=== PATIENT | male | born 1990 | race African-American/Black ===

== ENCOUNTER 2023-04-04 21:20 | Emergency (ER) | payer BC ==
[2023-04-04] MEDS ORDERED: PROMETHAZINE INJ 25 MG/ML AMP ONE (22:01)
[2023-04-04] MEDS ORDERED: CYCLOBENZAPRINE 10 MG TAB ONE (22:01)
[2023-04-04] MEDS ORDERED: MORPHINE 4 MG/ML SYR ONE (22:02)
[2023-04-04] MEDS ORDERED: KETOROLAC 30 MG/ML INJ ONE (22:02)
--- NOTE | 2023-04-05 00:36 | EDPHYS ---
Physician Documentation [facility] Name: Ren Polo Age: 33 yrs Sex: Male : 1990 Arrival Date: 04/04/2023 Time: 21:20 Bed 6 Private MD: ED Physician Brad Staton HPI: 04/04 21:29 This 33 yrs old Black Male presents to ER via Unassigned with complaints of Knee Injury.sp4 21:44 Patient is 33-year-old morbidly obese male who presents with complaint of a left knee sp4 injury just prior to arrival estimated 40 minutes ago. Patient states he was running and fell onto the left knee causing hyperflexion of the knee. Patient states he has very difficult time putting weight on the left lower extremity because of knee pain, no prior injury to that leg reported. Historical: - Allergies: 22:07 No Known Allergies; kd3 - Immunization history:: Adult Immunizations up to date. - Social history:: Smoking status: Reported history of juuling and/or vaping. - Family history:: not pertinent. ROS: 21:44 Constitutional: Negative for fever, chills, and weight loss, MS/Extremity: Positive for sp4 left knee injury, left knee pain, left knee swelling, not able to bear weight on the leg 21:44 All other systems are negative. Exam: 21:44 Constitutional: This is a well developed, well nourished patient who is awake, alert, sp4 morbidly obese male Head/Face: Normocephalic, atraumatic. Eyes: Pupils equal round and reactive to light, extra-ocular motions intact. Lids and lashes normal. Conjunctiva and sclera are not injected. Cornea within normal limits. Periorbital areas with no swelling, redness, or edema. ENT: Nares patent. No nasal discharge, no septal abnormalities noted. Tympanic membranes are normal and external auditory canals are clear. Oropharynx with no redness, swelling, or masses, exudates, or evidence of obstruction, uvula midline. Mucous membranes moist. Neck: Trachea midline, no thyromegaly or masses palpated, and no cervical lymphadenopathy. Supple, full range of motion without nuchal rigidity, or vertebral point tenderness. Chest/axilla: Normal chest wall appearance and motion. Nontender with no deformity. No lesions are appreciated. Cardiovascular: Regular rate and rhythm with a normal S1 and S2. No gallops, murmurs, or rubs. Normal PMI, no JVD. No pulse deficits. Respiratory: Lungs have equal breath sounds bilaterally, clear to auscultation and percussion. No rales, rhonchi or wheezes noted. No increased work of breathing, no retractions or nasal flaring. Abdomen/GI: Soft, non-tender, with normal bowel sounds. No distension or tympany. No guarding or rebound. No evidence of tenderness throughout. Back: No spinal tenderness. No costovertebral tenderness. Skin: Warm, dry with normal turgor. Normal color with no rashes, no lesions, and no evidence of cellulitis. MS/ Extremity: Pulses equal, no cyanosis. Neurovascular intact. Left lower extremity pulses preserved, left knee tenderness, swelling, decreased range of motion. Morbidly obese habitus limits examination Neuro: Awake and alert, GCS 15, oriented to person, place, time, and situation. Cranial nerves II-XII grossly intact. Motor strength 5/5 in all extremities. Sensory grossly intact. Psych: Awake, alert, with orientation to person, place and time. Behavior, mood, and affect are within normal limits Vital Signs: 22:04 BP 160 / 82; Pulse 89; Resp 16; Temp 97.9(TE); Pulse Ox 96% on R/A; Weight 199.58 kg; kd3 Height 6 ft. 3 in. ; 23:11 BP 178 / 98; Pulse 76; Resp 17; Pulse Ox 91% on R/A; ll3 04/05 00:23 BP 186 / 103; Pulse 85; Resp 18; Pulse Ox 91% on R/A; ll3 00:40 BP 162 / 91; Pulse 92; Resp 18; Pulse Ox 92% on R/A; ll3 01:19 BP 160 / 90; Pulse 90; Resp 20 S; Pulse Ox 92% on R/A; ha1 04/04 22:04 Body Mass Index 55.00 (199.58 kg, 190.5 cm) kd3 MDM: 04/04 21:30 Patient medically screened. sp4 04/05 00:32 Differential Diagnosis Left knee sprain, left knee fracture, left knee derangement, sp4 left knee dislocation. Data reviewed: vital signs, nurses notes, radiologic studies, plain films. Consideration of Admission/Observation Escalation of care including admission/observation considered. ED course: Left knee x-ray radiograph is unremarkable. . 00:35 ED course: . sp4 04/04 22:43 Order name: Knee Left 3 View XRAY sp4 04/05 00:33 Order name: Crutch Training; Complete Time: : sp4 04/05 00:33 Order name: Crutches; Complete Time: sp4 04/05 00:34 Order name: Splint: L knee immobilizer; Complete Time: sp4 Administered Medications: 04/04 22:08 Drug: morphine IM 8 mg Route: IM; Site: right deltoid; kd3 22:08 Drug: Ketorolac IM 60 mg Route: IM; Site: left deltoid; kd3 22:08 Drug: Cyclobenzaprine PO 10 mg Route: PO; kd3 22:11 Not Given (Physician Discretion): Promethazine PO 25 mg PO once kd3 22:11 Drug: Promethazine IM 25 mg Route: IM; Site: right deltoid; kd3 04/05 00:50 Drug: Ondansetron PO 4 mg Route: PO; ha1 01:18 Follow up: Response: No adverse reaction ha1 00:55 Drug: [place] PO 10 mg-325 mg 1 tabs Route: PO; ha1 01:18 Follow up: Response: No adverse reaction; Pain is decreased; RASS: Alert and Calm (0) ha1 Disposition Summary: 04/05/23 00:36 Discharge Ordered Location: Home sp4 Problem: new sp4 Symptoms: are unchanged sp4 Condition: Stable sp4 Diagnosis - Sprain of other specified parts of knee sp4 - Sprain of other specified parts of left knee sp4 - Obesity, unspecified sp4 Followup: sp4 - With: Harsh Stephens MD - When: 10 - 14 days - Reason: Recheck today's complaints Discharge Instructions: - Discharge Summary Sheet sp4 - Knee Sprain, Adult, [id number] sp4 Prescriptions: - Ibuprofen 800 mg Oral Tablet - take 1 tablet by ORAL route every 8 hours As needed take with food; 30 tablet; sp4 Refills: 0, Product Selection Permitted - methocarbamol 750 mg Oral Tablet - take 1 tablet by ORAL route 4 times per day for 3 days PRN muscle soreness; 60 sp4 tablet; Refills: 0, Product Selection Permitted Signatures: Dispatcher [employer] Sera Pina RN RN kd3 Ruba Denise RN RN ha1 Brad Staton MD MD sp4
--- NOTE | 2023-04-05 00:36 | ER ---
Nurse's Notes [facility] Name: Ren Polo Age: 33 yrs Sex: Male : 1990 Arrival Date: 04/04/2023 Time: 21:20 Bed 6 Private MD: Diagnosis: Sprain of other specified parts of knee;Sprain of other specified parts of left knee;Obesity, unspecified Presentation: 04/04 22:04 Chief complaint: Patient states: My left knee is swollen from my calf to my thigh. I kd3 was running and i slipped and rolled over on it and it felt like my knee cap moved. Coronavirus screen: Vaccine status: Patient reports being unvaccinated. Ebola Screen: No symptoms or risks identified at this time. Initial Sepsis Screen: Does the patient meet any 2 criteria? No. Patient's initial sepsis screen is negative. Does the patient have a suspected source of infection? No. Patient's initial sepsis screen is negative. Risk Assessment: Do you want to hurt yourself or someone else? Patient reports no desire to harm self or others. Onset of symptoms was April 04, 2023. 22:04 Method Of Arrival: Wheelchair kd3 22:04 Acuity: OFELIA 3 kd3 Triage Assessment: 22:07 General: Appears uncomfortable, Behavior is calm, cooperative. Pain: Complains of pain kd3 in left knee. Musculoskeletal: Circulation, motion, and sensation intact. 22:08 Injury Description: fall. ha1 Historical: - Allergies: 22:07 No Known Allergies; kd3 - Immunization history:: Adult Immunizations up to date. - Social history:: Smoking status: Reported history of juuling and/or vaping. - Family history:: not pertinent. Screenin:08 [facility] ED Fall Risk Assessment (Adult) History of falling in the last 3 months, ha1 including since admission Yes- single mechanical fall (1 pt) Confusion or Disorientation No (0 pts) Score/Fall Risk Level 0 - 2 = Low Risk Oriented to surroundings, Maintained a safe environment, Educated pt \T\ family on fall prevention, incl call for assistance when getting out of bed, Hourly rounding (assess needs \T\ fall precautionary measures) done. 04/05 01:20 Abuse screen: Denies threats or abuse. Denies injuries from another. Nutritional ha1 screening: No deficits noted. Tuberculosis screening: No symptoms or risk factors identified. Assessment: 04/04 22:45 General: Appears comfortable, Behavior is calm, cooperative. Pain: Complains of pain in ha1 left leg and left knee Pain does not radiate. Pain currently is 10 out of 10 on a pain scale. Neuro: Level of Consciousness is awake, alert, obeys commands, Oriented to person, place, time, situation. Cardiovascular: Patient's skin is warm and dry. Respiratory: Airway is patent Respiratory effort is even, unlabored, Respiratory pattern is regular, symmetrical. GI: No signs and/or symptoms were reported involving the gastrointestinal system. Abdomen is round non-distended, obese. : No signs and/or symptoms were reported regarding the genitourinary system. Musculoskeletal: Circulation, motion, and sensation intact. Range of motion: limited in left leg Reports pain in left knee. 23:45 Reassessment: Patient and/or family updated on plan of care and expected duration. Pain ha1 level reassessed. Patient is alert, oriented x 3, equal unlabored respirations, skin warm/dry/pink. 04/05 00:55 Reassessment: Patient and/or family updated on plan of care and expected duration. Pain ha1 level reassessed. Patient is alert, oriented x 3, equal unlabored respirations, skin warm/dry/pink. pain 6/10 Patient states feeling better. Patient states symptoms have improved. 01:19 Reassessment: Patient and/or family updated on plan of care and expected duration. Pain ha1 level reassessed. Patient is alert, oriented x 3, equal unlabored respirations, skin warm/dry/pink. Patient denies pain at this time. Patient states feeling better. Vital Signs: 04/04 22:04 BP 160 / 82; Pulse 89; Resp 16; Temp 97.9(TE); Pulse Ox 96% on R/A; Weight 199.58 kg; kd3 Height 6 ft. 3 in. ; 23:11 BP 178 / 98; Pulse 76; Resp 17; Pulse Ox 91% on R/A; ll3 04/05 00:23 BP 186 / 103; Pulse 85; Resp 18; Pulse Ox 91% on R/A; ll3 00:40 BP 162 / 91; Pulse 92; Resp 18; Pulse Ox 92% on R/A; ll3 01:19 BP 160 / 90; Pulse 90; Resp 20 S; Pulse Ox 92% on R/A; ha1 04/04 22:04 Body Mass Index 55.00 (199.58 kg, 190.5 cm) kd3 ED Course: 04/04 21:21 Patient arrived in ED. ja2 21:29 Brad Staton MD is Attending Physician. sp4 22:07 Triage completed. kd3 22:07 Arm band placed on right wrist. kd3 22:08 Patient has correct armband on for positive identification. Bed in low position. Call ha1 light in reach. Side rails up X 1. 23:01 Knee Left 3 View XRAY In Process Unspecified. EDMS 04/05 00:35 Harsh Stephens MD is Referral Physician. sp4 01:20 No provider procedures requiring assistance completed. Patient did not have IV access ha1 during this emergency room visit. Administered Medications: 04/04 22:08 Drug: morphine IM 8 mg Route: IM; Site: right deltoid; kd3 22:08 Drug: Ketorolac IM 60 mg Route: IM; Site: left deltoid; kd3 22:08 Drug: Cyclobenzaprine PO 10 mg Route: PO; kd3 22:11 Not Given (Physician Discretion): Promethazine PO 25 mg PO once kd3 22:11 Drug: Promethazine IM 25 mg Route: IM; Site: right deltoid; kd3 04/05 00:50 Drug: Ondansetron PO 4 mg Route: PO; ha1 01:18 Follow up: Response: No adverse reaction ha1 00:55 Drug: [place] PO 10 mg-325 mg 1 tabs Route: PO; ha1 01:18 Follow up: Response: No adverse reaction; Pain is decreased; RASS: Alert and Calm (0) ha1 Medication: 01:20 VIS not applicable for this client. ha1 Outcome: 00:36 Discharge ordered by . sp4 01:20 Discharged to home via wheelchair, with crutches. ha1 01:20 Condition: stable 01:20 Discharge instructions given to patient, family, Instructed on discharge instructions, follow up and referral plans. medication usage, Demonstrated understanding of instructions, follow-up care, medications, Prescriptions given X 2. 01:22 Patient left the ED. ha1 Signatures: Dispatcher [employer] EDMS Sharif, PepperSj Serrato RN RN ll3 Sera Villagomez RN RN kd3 Ruba Denise RN RN ha1 Brad Staton MD MD sp4 Corrections: (The following items were deleted from the chart) 04/04 22:08 22:08 Promethazine PO 25 mg PO kd3 kd3
[2023-04-05] MEDS ORDERED: ONDANSETRON 4 MG (ODT) TAB ONE (00:56)
[2023-04-05] MEDS ORDERED: HYDROCODONE/APAP 10/325 TAB ONE (00:56)
[2023-04-05 01:39] VITALS: TEMP 97.9
[2023-04-05 01:44] VITALS: O2SAT 92
[2023-04-05 01:45] VITALS: BP 160/90
--- NOTE | 2023-04-05 13:33 | RAD REPORT ---
EXAM DESCRIPTION: RAD - Knee Left 3 View - 04/04/2023 10:59 pm CLINICAL HISTORY: Left knee injury COMPARISON: None. TECHNIQUE: Left Knee 3 Views FINDINGS: No fracture or dislocation. No significant sclerotic/lytic bone lesion. Joint spaces unremarkable. Soft tissues unremarkable. IMPRESSION: Unremarkable Left Knee Radiographs. Electronically signed by: Bennie Brown MD 04/04/2023 11:41 PM CDT Due to temporary technical issues with the PACS/Fluency reporting system, reports are being signed by the in house radiologist without review as a courtesy to ensure prompt reporting. The interpreting r adiologist is fully responsible for the content of the report.
== END 2023-04-05 01:22 | disposition home or self-care (01) ==
LOC: ER 21:20
DX: S83.8X2A Sprain of other specified parts of left knee, initial encounter (principal); E66.9 Obesity, unspecified; Z68.43 Body mass index [BMI] 50.0-59.9, adult
CPT/HCPCS: 73562; 96372; 99284; J2550; Q0162

== ENCOUNTER 2023-08-20 18:53 | Emergency (ER) | payer BC ==
--- OUTSIDE RECORDS SUMMARY | 2023-08-20 18:57 | XMS REPORT | Continuity of Care Document ---
:1990 Author Organization [facility] t Address [address] [facility] [address] [place] [address] Care Team Providers Name Role Phone DAVID LEE Attending Clinician Unavailable DAVID LEE Admitting Clinician Unavailable Payers Payer Name Policy Type Policy Number Effective Date Expiration Date S ource [employer] PPO POS EPO [id number] 2023 00:00:00 CHOICE Problems This patient has no known problems. Allergies, Adverse Reactions, Alerts Allergy Allergy Status Severity Reaction(s) Onset Inactive Treating Comm ents Source Name Type Date Date Clinician NO KNOWN Allergy Active [facility] Social History Social Habit Start Date Stop Date Quantity Comments Source History of Occasional tobacco [facility] tobacco use smoker [facility] Exposure to 2023-08-08 2023-08-[address] [facility] SARS-CoV-2 00:00:00 10:06:[address] [facility] (event) Tobacco use and 2023-08-18 2023-08-18 Smokeless tobacco [facility] exposure 00:00:00 00:00:00 non-user [facility] Alcohol intake 2023-08-18 2023-08-18 Ex-drinker (finding) [facility] 00:00:00 00:00:[address] [facility] Tobacco Comment 2023-08-18 2023-08-[address] [facility] 00:00:00 00:00:00 for [address] [facility] Sex Assigned At [address] 00:[facility]00 00:[facility]:[address] [facility] Smoking Status Start Date Stop Date Source Occasional tobacco smoker 2023-08-18 00:00:00 I [facility] Medications Ordered Filled Start Stop Current Ordering Indication Dosage Frequency Signature Comments Components Source Medication Medication Date Date Medication? Clinician (SIG) Name Name amLODIPine 2022-10 Yes 5mg QD Take 1 [facility] 5 1-01 tablet (5 [place] es MG tablet 10:00: mg total) Med ical 48 by mouth Center daily. losartan 2022-10 Yes 100mg QD Take [address] (COZAAR) 0-16 tablet [facility] 100 MG 00:00: (100 mg Medical tablet 00 total) by Center mouth daily. Vital Signs Vital Name Observation Time Observation Value Comments Source HEIGHT 2023-08-18 10:06:00 190.5 cm WEIGHT 2023-08-18 10:06:00 199.583 kg Body height 2023-08-18 10:06:00 190.5 cm [facility] Body weight 2023-08-18 10:06:00 199.583 kg [facility] BMI 2023-08-18 10:06:00 55.00 kg/m2 [facility] Procedures This patient has no known procedures. Plan of Care Planned Activity Planned Date Details Comments Source Future Scheduled 2023-06-18 Influenza Vaccine (#1) [facility] 00:00:00 [code = Influenza Vaccine [facility] (#1)] Future Scheduled 2022-10-[address] [facility] Test 00:00:00 (12+) [code = DEPRESSION [facility] SCREENING (12+)] Future Scheduled 2010 Lipid panel (procedure) [facility] Test 00:00:00 [code = 91322698] Medical Ce nter Future Scheduled 2009 DTAP/TDAP/TD VACCINES ([address] [facility] Test 00:00:00 - Tdap) [code = Medical Cent er DTAP/TDAP/TD VACCINES (1 - Tdap)] Future Scheduled 2008 [facility] 00:00[facility]00 [code = HEPATITIS [facility] Center SCREENING] Future Scheduled [address] [facility] 00:00:00 virus screening Medical Cent er (procedure) [code = 442528821] Future Scheduled [address] [facility] Test 00:00:00 Counseling and Screening [facility] (12+) [code = Tobacco Cessation Counseling and Screening (12+)] Future Scheduled 1996 Pneumococcal Vaccine: [facility] 00:00:00 0-64 Years (1 - PCV) [facility] [code = Pneumococcal Vaccine: 0-64 Years (1 - PCV)] Future Scheduled 1990 COVID-19 VACCINE (#1) [facility] 00:00:00 [code = COVID-19 VACCINE [facility] (#1)] Future Appointment 2023-08-25 David Lee MD, [address] [facility] 11:15:[address], [place] [address] Future Appointment 2023-08-25 David Lee MD, [address] [facility] 11:15:[address], [place] [address] Future Appointment 2023-08-25 Thomas Saini MD, [facility] 11:15:00 [facility] [address], [place] [address] Procedure 2023-08-25 RECONSTRUCTION, KNEE, [facility] 11:15:00 ACL, ARTHROSCOPIC, USING [facility] QUADRICEPS TENDON AUTOGRAFT Procedure 2023-08-25 ARTHROSCOPY, KNEE, WITH [facility] 11:15:00 REPAIR OR RECONSTRUCTION [facility] OF PCL Procedure 2023-08-25 AUGMENTATION, LIGAMENT, [facility] 11:15:[address] [facility] Procedure 2023-08-25 ARTHROSCOPY, KNEE, WITH [facility] 11:15:00 MENISCUS REPAIR [facility] er Procedure 2023-08-25 ARTHROSCOPY, KNEE, WITH [facility] 11:15:[address] [facility] Procedure 2023-08-25 PROCEDURE W/MINI [facility]00 [facility] Center Encounters Start End Encounter Admission Attending Care Care Encounter Source Date/Time Date/Time Type Type Clinicians Facility Department ID 2023-08-05 Outpatient NOREEN NASH Surgery [id number] 26 [facility] 14:33:40 DAVID 2023-08-18 2023-08-18 Outpatient [facility] [id number] [facility] 15:23:08 23:59:00 2023-08-18 2023-08-18 [facility] [id number] 10:30:00 23:59:00 Encounter [facility] 2023-08-18 2023-08-18 Travel [facility] [id number] [facility] St 00:00:00 00:00:00 [facility] Results This patient has no known results.
[2023-08-20 20:13] LABS: Absolute Lymphocytes (CBC) 2.5 K/uL (0.7-4.9); Hematocrit 39.7 % (39.6-49.0); Lymphocytes % 32.6 % (15.3-44.8); MCV 83.2 fL (80-100); MPV 8.3 fL (7.6-11.3); Platelets 266 thou/uL (152-406); RBC Red Blood Cell Count 4.77 M/uL (4.33-5.43)
[2023-08-20 20:21] LABS: Protime INR 1.06
--- NOTE | 2023-08-20 20:24 | RAD REPORT ---
EXAM DESCRIPTION: Alexis Single View08/20/2023 8:03 pm CLINICAL HISTORY: Chest pain COMPARISON: none FINDINGS: The lungs appear clear of acute infiltrate. The heart probably is borderline enlarged IMPRESSION: No acute abnormalities displayed
[2023-08-20] MEDS ORDERED: ASPIRIN 325 MG TAB ONE (20:31)
[2023-08-20] MEDS ORDERED: MECLIZINE HCL 12.5 MG TAB ONE (20:31)
[2023-08-20] MEDS ORDERED: LABETALOL 20 MG/4ML SYRINGE IV ONE (20:32)
[2023-08-20] MEDS ORDERED: ONDANSETRON 4 MG/2 ML VIAL ONE (20:32)
[2023-08-20 20:34] LABS: Potassium 3.8 mEq/L (3.5-5.1); Troponin High Sensitivity 21.9 pg/mL (<58.9)
--- NOTE | 2023-08-20 21:27 | EDPHYS ---
Physician Documentation [facility] Name: Ren Polo Age: 33 yrs Sex: Male : 1990 Arrival Date: 08/20/2023 Time: 18:53 Bed 6 Private MD: ED Physician Chandra Cook HPI: 08/20 20:46 This 33 yrs old Black Male presents to ER via Ambulatory with complaints of Chest cp3 Pressure, Headache, Dizziness, Numbness Of Arm, High Blood Pressure. 20:46 Patient is a 33-year-old male with history of hypertension who presents to the ED cp3 complaining of dizziness with movement that started roughly around 5 PM patient had some associated chest discomfort has resolved. Patient endorses dizziness and room spinning sensation, nausea, generalized weakness. No syncope, no diaphoresis. Historical: - Allergies: 19:03 No Known Allergies; vc1 - Home Meds: 19:03 losartan 100 mg oral tablet [Active]; amlodipine 5 mg tablet [Active]; vc1 - PMHx: 19:03 Hypertensive disorder; vc1 - PSHx: 19:03 None; vc1 - Immunization history:: Client reports having NOT received the Covid vaccine. - Social history:: Smoking status: Patient/guardian denies using tobacco. - Family history:: not pertinent. ROS: 20:46 Constitutional: Negative for fever, chills, and weight loss, Eyes: Negative for injury, cp3 pain, redness, and discharge, ENT: Negative for injury, pain, and discharge, Neck: Negative for injury, pain, and swelling, 20:46 Respiratory: Negative for shortness of breath, cough, wheezing, and pleuritic chest pain, Back: Negative for injury and pain, : Negative for injury, bleeding, discharge, and swelling, MS/Extremity: Negative for injury and deformity, Skin: Negative for injury, rash, and discoloration, Psych: Negative for depression, anxiety, suicide ideation, homicidal ideation, and hallucinations, Allergy/Immunology: Negative for hives, rash, and allergies, Endocrine: Negative for neck swelling, polydipsia, polyuria, polyphagia, and marked weight changes, Hematologic/Lymphatic: Negative for swollen nodes, abnormal bleeding, and unusual bruising, 20:46 Cardiovascular: Positive for chest pain, 20:46 Abdomen/GI: Positive for nausea and vomiting, 20:46 Neuro: Positive for dizziness, Exam: 20:46 Constitutional: This is a well developed, well nourished patient who is awake, alert, cp3 and in no acute distress. Head/Face: Normocephalic, atraumatic. Eyes: Pupils equal round and reactive to light, extra-ocular motions intact. Lids and lashes normal. Conjunctiva and sclera are non-icteric and not injected. Cornea within normal limits. Periorbital areas with no swelling, redness, or edema. ENT: Nares patent. No nasal discharge, no septal abnormalities noted. Tympanic membranes are normal and external auditory canals are clear. Oropharynx with no redness, swelling, or masses, exudates, or evidence of obstruction, uvula midline. Mucous membranes moist. Neck: Trachea midline, no thyromegaly or masses palpated, and no cervical lymphadenopathy. Supple, full range of motion without nuchal rigidity, or vertebral point tenderness. No Meningismus. Chest/axilla: Normal chest wall appearance and motion. Nontender with no deformity. No lesions are appreciated. Cardiovascular: Regular rate and rhythm with a normal S1 and S2. No gallops, murmurs, or rubs. Normal PMI, no JVD. No pulse deficits. Respiratory: Lungs have equal breath sounds bilaterally, clear to auscultation and percussion. No rales, rhonchi or wheezes noted. No increased work of breathing, no retractions or nasal flaring. Abdomen/GI: Soft, non-tender, with normal bowel sounds. No distension or tympany. No guarding or rebound. No evidence of tenderness throughout. Back: No spinal tenderness. No costovertebral tenderness. Full range of motion. Skin: Warm, dry with normal turgor. Normal color with no rashes, no lesions, and no evidence of cellulitis. MS/ Extremity: Pulses equal, no cyanosis. Neurovascular intact. Full, normal range of motion. Neuro: Awake and alert, GCS 15, oriented to person, place, time, and situation. Cranial nerves II-XII grossly intact. Motor strength 5/5 in all extremities. Sensory grossly intact. Cerebellar exam normal. Normal gait. Psych: Awake, alert, with orientation to person, place and time. Behavior, mood, and affect are within normal limits. Vital Signs: 19:00 BP 161 / 111; Pulse 73; Resp 20; Temp 97.9; Pulse Ox 96% ; Weight 199.58 kg; Height 6 vc1 ft. 3 in. ; Pain 6/10; 19:11 BP 192 / 104; Pulse 67; Resp 18; Pulse Ox 97% on R/A; Pain 5/10; la4 19:20 BP 192 / 98; Pulse 71; Resp 16; Pulse Ox 100% on 2 lpm NC; la4 19:30 BP 178 / 107; Pulse 66; Resp 18; Pulse Ox 100% ; Pain 5/10; la4 19:45 BP 188 / 111; Pulse 68; Resp 18 S; Pulse Ox 100% on 2 lpm NC; Pain 2/10; la4 19:55 BP 192 / 115; Pulse 71; Resp 18; Pulse Ox 100% on 2 lpm NC; Pain 2/10; la4 20:15 BP 179 / 106; Pulse 78; Resp 18; Pulse Ox 100% on 2 lpm NC; la4 20:45 BP 169 / 92; Pulse 71; Resp 18; Pulse Ox 100% on 2 lpm NC; Pain 1/10; la4 21:25 BP 167 / 99; Pulse 67; Resp 18; Pulse Ox 100% on 2 lpm NC; la4 22:00 BP 174 / 100; Pulse 70; Resp 16; Pulse Ox 100% on R/A; Pain 0/10; la4 19:00 Body Mass Index 55.00 (199.58 kg, 190.5 cm) vc1 19:00 Pain Scale: Adult vc1 19:11 Pain Scale: Adult la4 19:30 Pain Scale: Adult la4 19:45 Pain Scale: Adult la4 19:55 Pain Scale: Adult la4 20:45 Pain Scale: Adult la4 22:00 Pain Scale: Adult la4 19:11 chest pressure reported la4 19:20 placed on 2LNC due to c/o continued dizziness, chest pressure, elevated bp and nausea. la4 19:45 states chest pressure has improved along with dizziness improving as well la4 Patrice Coma Score: 22:00 Eye Response: spontaneous(4). Motor Response: obeys commands(6). Verbal Response: la4 oriented(5). Total: 15. MDM: 19:01 Patient medically screened. cp3 20:46 Differential diagnosis: abnormal EKG, coronary artery disease Vertigo, hypertensive cp3 crisis, hypertensive urgency. HEART Score: History: Slightly Suspicious (0), ECG: Normal (0), Age: < or = 45 years (0), Risk Factors: 1 or 2 risk factors (1), Troponin: < or = 1 x Normal Limit (0), Total Score = 1. Data reviewed: vital signs, nurses notes, lab test result(s), EKG, EKG interpreted by me: Rate 76, normal sinus rhythm, no evidence of acute [place]. Consideration of Admission/Observation Escalation of care including admission/observation considered. Patient declined observation his pain is resolved and dizziness improved. I considered the following discharge prescriptions or medication management in the emergency department Medications were administered in the Emergency Department. See MAR. Independent interpretation of the following test(s) in the Emergency Department cardiac monitor technician: cardiac monitor technician interpreted by me rate 70, normal sinus rhythm. Response to treatment: the patient's symptoms have markedly improved after treatment. 08/20 19:54 Order name: Basic Metabolic Panel; Complete Time: 20:35 cp3 08/20 19:54 Order name: CBC with Diff; Complete Time: 20:46 cp3 08/20 19:54 Order name: D-Dimer; Complete Time: 20:35 cp3 08/20 19:54 Order name: NT PRO-BNP; Complete Time: 20:35 cp3 08/20 19:54 Order name: PT-INR; Complete Time: 20:35 cp3 08/20 19:54 Order name: Troponin HS; Complete Time: 20:35 cp3 08/20 19:54 Order name: XRAY Chest (1 view); Complete Time: 20:35 cp3 08/20 19:54 Order name: EKG; Complete Time: 19:55 cp3 08/20 19:54 Order name: Cardiac monitoring; Complete Time: 20:29 cp3 08/20 19:54 Order name: EKG - Nurse/Tech; Complete Time: 20:24 cp3 08/20 19:54 Order name: IV Saline Lock; Complete Time: 20:29 cp3 08/20 19:54 Order name: Labs collected and sent; Complete Time: 20:29 cp3 08/20 19:54 Order name: O2 Per Protocol; Complete Time: 20:29 cp3 08/20 19:54 Order name: O2 Sat Monitoring; Complete Time: 20:29 cp3 Administered Medications: 20:28 Drug: Ondansetron IVP 4 mg IVP once; over 2 minutes Route: IVP; Site: right antecubital;la4 20:28 Drug: Meclizine PO 50 mg PO once Route: PO; la4 20:29 Drug: Labetalol IV 10 mg IV at bolus once Route: IV; Rate: bolus; Site: right la4 antecubital; 20:29 Drug: Aspirin PO 325 mg PO once Route: PO; la4 Disposition Summary: 08/20/23 21:27 Discharge Ordered Notes: Location: Home cp3 Condition: Stable cp3 Diagnosis - Other peripheral vertigo, unspecified ear cp3 - Dehydration cp3 - Headache cp3 Followup: cp3 - With: Elian Gould MD - When: Upon discharge from the Emergency Department - Reason: If symptoms return Discharge Instructions: - Discharge Summary Sheet cp3 - Benign Positional Vertigo cp3 - Dehydration, Elderly cp3 - General Headache Without Cause cp3 Forms: - Medication Reconciliation Form cp3 - Thank You Letter cp3 - Antibiotic Education cp3 - Prescription Opioid Use cp3 - Patient Portal Instructions cp3 - Leadership Thank You Letter cp3 Prescriptions: - Meclizine 25 mg Oral Tablet - take 1 tablet ORAL route every 8 hours As needed; 30 tablet; Refills: 0, cp3 Product Selection Permitted - Zofran 4 mg Oral Tablet - take 1 tablet ORAL route every 12 hours As needed; 20 tablet; Refills: 0, cp3 Product Selection Permitted - Cyclobenzaprine 5 mg Oral Tablet - take 1 tablet ORAL route 3 times per day As needed; 15 tablet; Refills: 0, cp3 Product Selection Permitted Signatures: Dispatcher [employer] Chandra Brenner MD MD cp3 Kamini Norman RN RN vc1 Rosette Sepulveda RN RN la4 Corrections: (The following items were deleted from the chart) 20:07 19:55 Head Brain Wo [id number] ordered. EDMS EDMS
--- NOTE | 2023-08-20 21:27 | ER ---
Nurse's Notes [facility] Name: Ren Polo Age: 33 yrs Sex: Male : 1990 Arrival Date: 08/20/2023 Time: 18:53 Bed 6 Private MD: Diagnosis: Other peripheral vertigo, unspecified ear;Dehydration;Headache Presentation: 08/20 19:00 Chief complaint: Patient states: Started having right sided chest pain, dizziness, and vc1 a headache about an hour ago. Recently diagnosed with high blood pressure. Took Losartan 100mg anf Amlodipine 5 mg around 5:30 pm. Coronavirus screen: Vaccine status: Patient reports being unvaccinated. Client denies travel out of the [place] in the last 14 days. At this time, the client does not indicate any symptoms associated with coronavirus-19. Ebola Screen: Patient negative for fever greater than or equal to 101.5 degrees Fahrenheit, and additional compatible Ebola Virus Disease symptoms Patient denies exposure to infectious person. Patient denies travel to an Ebola-affected area in the 21 days before illness onset. No symptoms or risks identified at this time. Initial Sepsis Screen: Does the patient meet any 2 criteria? No. Patient's initial sepsis screen is negative. Does the patient have a suspected source of infection? No. Patient's initial sepsis screen is negative. Risk Assessment: Do you want to hurt yourself or someone else? Patient reports no desire to harm self or others. Onset of symptoms was 1800. 19:00 Method Of Arrival: Ambulatory vc1 19:00 Acuity: OFELIA 3 vc1 Triage Assessment: 19:04 General: Appears in no apparent distress. uncomfortable, obese, Behavior is vc1 cooperative, appropriate for age, anxious. Pain: Complains of pain in anterior aspect of right upper chest Pain does not radiate. Pain currently is 6 out of 10 on a pain scale. EENT: No deficits noted. No signs and/or symptoms were reported regarding the EENT system. Neuro: Level of Consciousness is awake, alert, obeys commands, Oriented to person, place, time, situation, Appropriate for age. Cardiovascular: Reports chest pain, lightheadedness, shortness of breath, Chest pain is described as severe, Pain is 6 out of 10 on a pain scale. quality is pressure. Respiratory: Reports shortness of breath Airway is patent Respiratory effort is even, unlabored, Respiratory pattern is regular, symmetrical. GI: No deficits noted. No signs and/or symptoms were reported involving the gastrointestinal system. : No deficits noted. No signs and/or symptoms were reported regarding the genitourinary system. Derm: No deficits noted. No signs and/or symptoms reported regarding the dermatologic system. Musculoskeletal: No deficits noted. No signs and/or symptoms reported regarding the musculoskeletal system. Historical: - Allergies: 19:03 No Known Allergies; vc1 - Home Meds: 19:03 losartan 100 mg oral tablet [Active]; amlodipine 5 mg tablet [Active]; vc1 - PMHx: 19:03 Hypertensive disorder; vc1 - PSHx: 19:03 None; vc1 - Immunization history:: Client reports having NOT received the Covid vaccine. - Social history:: Smoking status: Patient/guardian denies using tobacco. - Family history:: not pertinent. Assessment: 19:54 Also complains of shortness of breath, dizziness. Tenecteplase (TNKase) screening: la4 Contraindications:. General: Appears uncomfortable, obese, Behavior is calm, cooperative, appropriate for age, Smells of body odor. Pain: Complains of pain in mid-sternal area Pain does not radiate. Pain currently is 5 out of 10 on a pain scale. Quality of pain is described as pressure, Pain began suddenly. Neuro: Case Agitation-Sedation Scale (RASS): 0 - Alert and Calm Level of Consciousness is awake, alert, obeys commands, Oriented to person, place, time, situation, Appropriate for age Cigar Packing Examiner are equal bilaterally. Cardiovascular: Heart tones S1 S2 Capillary refill < 3 seconds is brisk Edema is 1+ to left ankle and left foot reports some edema ever since ankle injury Rhythm is sinus rhythm. Cardiovascular: Chest pain is described as mild, Pain is 5 out of 10 on a pain scale. quality is pressure, is located in anterior substernal area is aggravated by laying down is alleviated by sitting up. Respiratory: Airway is patent Respiratory effort is even, unlabored, Respiratory pattern is regular, symmetrical, Pt noted to pay attention to his breathing while sitting up and taking slow deep breaths. States that he feels slightly SOB and reports some chest pressure. 2LNC applied. reports chest pressure improved after application of O2 but he remains dizzy Breath sounds are clear bilaterally. Vital Signs: 19:00 BP 161 / 111; Pulse 73; Resp 20; Temp 97.9; Pulse Ox 96% ; Weight 199.58 kg; Height 6 vc1 ft. 3 in. ; Pain 6/10; 19:11 BP 192 / 104; Pulse 67; Resp 18; Pulse Ox 97% on R/A; Pain 5/10; la4 19:20 BP 192 / 98; Pulse 71; Resp 16; Pulse Ox 100% on 2 lpm NC; la4 19:30 BP 178 / 107; Pulse 66; Resp 18; Pulse Ox 100% ; Pain 5/10; la4 19:45 BP 188 / 111; Pulse 68; Resp 18 S; Pulse Ox 100% on 2 lpm NC; Pain 2/10; la4 19:55 BP 192 / 115; Pulse 71; Resp 18; Pulse Ox 100% on 2 lpm NC; Pain 2/10; la4 20:15 BP 179 / 106; Pulse 78; Resp 18; Pulse Ox 100% on 2 lpm NC; la4 20:45 BP 169 / 92; Pulse 71; Resp 18; Pulse Ox 100% on 2 lpm NC; Pain 1/10; la4 21:25 BP 167 / 99; Pulse 67; Resp 18; Pulse Ox 100% on 2 lpm NC; la4 22:00 BP 174 / 100; Pulse 70; Resp 16; Pulse Ox 100% on R/A; Pain 0/10; la4 19:00 Body Mass Index 55.00 (199.58 kg, 190.5 cm) vc1 19:00 Pain Scale: Adult vc1 19:11 Pain Scale: Adult la4 19:30 Pain Scale: Adult la4 19:45 Pain Scale: Adult la4 19:55 Pain Scale: Adult la4 20:45 Pain Scale: Adult la4 22:00 Pain Scale: Adult la4 19:11 chest pressure reported la4 19:20 placed on 2LNC due to c/o continued dizziness, chest pressure, elevated bp and nausea. la4 19:45 states chest pressure has improved along with dizziness improving as well la4 Vitals: 22:00 Cardiac Rhythm Assessment Regular Sinus rhythm. Cardiac Rhythm Assessment Regular. la4 Patrice Coma Score: 22:00 Eye Response: spontaneous(4). Motor Response: obeys commands(6). Verbal Response: la4 oriented(5). Total: 15. ED Course: 18:54 Patient arrived in ED. jj6 19:01 Chandra Cook MD is Attending Physician. cp3 19:03 Triage completed. vc1 19:04 Arm band placed on right wrist. vc1 19:19 Inserted saline lock: 20 gauge in right antecubital area, using aseptic technique. rv Blood collected. 19:44 Rosette Sepulveda, RN is Primary Nurse. la4 20:05 XRAY Chest (1 view) In Process Unspecified. EDMS 21:25 Elian Gould MD is Referral Physician. cp3 Administered Medications: 20:28 Drug: Ondansetron IVP 4 mg IVP once; over 2 minutes Route: IVP; Site: right antecubital;la4 20:28 Drug: Meclizine PO 50 mg PO once Route: PO; la4 20:29 Drug: Labetalol IV 10 mg IV at bolus once Route: IV; Rate: bolus; Site: right la4 antecubital; 20:29 Drug: Aspirin PO 325 mg PO once Route: PO; la4 Outcome: 21:27 Discharge ordered by . cp3 22:12 Patient left the ED. la4 Signatures: Dispatcher [employer] EDNY Chandra Cook MD MD cp3 Yang Presley RN RN Maria Teresa Dickey jj6 Kamini Norman RN RN vc1 Rosette Sepulveda RN RN la4
[2023-08-20 22:57] VITALS: TEMP 97.9
[2023-08-20 23:01] VITALS: O2SAT 100
[2023-08-20 23:14] VITALS: BP 174/100
== END 2023-08-20 22:12 | disposition home or self-care (01) ==
LOC: ER 18:53
DX: H81.399 Other peripheral vertigo, unspecified ear (principal); R51.9 Headache, unspecified; E86.0 Dehydration; R07.89 Other chest pain; R11.2 Nausea with vomiting, unspecified; I10 Essential (primary) hypertension
CPT/HCPCS: 93005; 85025; 80048; 36415; 85610; 85379; 84484; 83880; 71045; 96375; 96374; 99284; J8597; J2405

== ENCOUNTER 2024-07-04 14:55 | Emergency (ER) | payer SELFPAY ==
[2024-07-04] MEDS ORDERED: AMLODIPINE 5 MG TAB ONE (15:57)
[2024-07-04] MEDS ORDERED: hydroCHLOROthiazide 25 MG TAB ONE (15:58)
[2024-07-04 16:01] LABS: Absolute Eosinophils 0.1 K/uL (0-0.5); Absolute Lymphocytes (CBC) 1.4 K/uL (0.7-4.9); Absolute Monocytes 0.4 K/uL (0.1-1.3); Absolute Neutrophil 3.9 K/uL (1.8-8.0); Basophils % 0.7 % (0-1.3); Eosinophils % 1.2 % (0-4.4); Hematocrit 40.6 % (39.6-49.0); Hemoglobin 13.2 g/dL (13.6-17.9); Lymphocytes % 24.4 % (15.3-44.8); MCH 28.2 pg (27.0-35.0); MCHC 32.6 g/dL (32.0-36.0); MCV 86.7 fL (80-100); MPV 8.3 fL (7.6-11.3); Monocytes % 6.6 % (3.3-12.3); Neutrophils % 67.1 % (41.7-73.7); Platelets 259 thou/uL (152-406); RBC Red Blood Cell Count 4.68 M/uL (4.33-5.43)
[2024-07-04 16:19] LABS: Specific Gravity 1.022 (1.005-1.030); Sqamous Epithelial <5 /HPF (None Seen); Urine Bacteria None Seen /HPF (<20); Urine Bilirubin NEGATIVE (Negative); Urine Blood Negative (Negative); Urine Clarity Clear (Clear); Urine Color Yellow (Yellow); Urine Culture Reflex Order NOT NEEDED; Urine Glucose NEGATIVE (Negative); Urine Ketones TRACE (Negative); Urine Microscopic Reflex YN ORDER UMIC; Urine Mucus Slight /HPF (None Seen); Urine Nitrite NEGATIVE (Negative); Urine Protein TRACE (Negative); Urine RBC <5 /HPF (None Seen); Urine Urobilinogen Normal (Normal); Urine WBC <5 /HPF (<5)
[2024-07-04 16:23] LABS: Albumin 3.7 g/dL (3.4-5.0); Albumin/Globulin Ratio 0.9 (1.1-1.8); Anion Gap 8.9 mEq/L (5.0-15.0); Bilirubin Total 0.3 mg/dL (0.2-1.0); Potassium 3.9 mEq/L (3.5-5.1); Protein, Total 7.7 g/dL (6.4-8.2)
--- NOTE | 2024-07-04 16:44 | ER ---
Nurse's Notes [facility] Name: Ren Polo Age: 34 yrs Sex: Male : 1990 Arrival Date: 07/04/2024 Time: 14:55 Bed 11 Private MD: Diagnosis: Essential (primary) hypertension;Obesity, unspecified Presentation: 07/04 15:03 Chief complaint: Patient states: was at the IV infusion center and they told him his BP iw was high like 208/110, takes losartan 100 mg , did not have it this morning. Coronavirus screen: At this time, the client does not indicate any symptoms associated with coronavirus-19. Ebola Screen: No symptoms or risks identified at this time. 15:03 Method Of Arrival: Ambulatory iw 15:03 Acuity: OFELIA 3 iw 15:05 Initial Sepsis Screen: Does the patient meet any 2 criteria? No. Patient's initial iw sepsis screen is negative. Does the patient have a suspected source of infection? No. Patient's initial sepsis screen is negative. Risk Assessment: Do you want to hurt yourself or someone else? Patient reports no desire to harm self or others. Onset of symptoms was July 04, 2024. Historical: - Allergies: 15:05 No Known Allergies; iw - Home Meds: 15:05 losartan 100 mg Oral tablet [Active]; amlodipine 5 mg tablet [Active]; iw - PMHx: 15:05 Hypertensive disorder; iw - Immunization history:: Adult Immunizations up to date. - Infectious Disease History:: Denies. - Social history:: Smoking status: Patient denies any tobacco usage or history of. Screenin:54 [facility] ED Fall Risk Assessment (Adult) History of falling in the last 3 months, me1 including since admission No falls in past 3 months (0 pts) Confusion or Disorientation No (0 pts) Intoxicated or Sedated No (0 pts) Impaired Gait No (0 pts) Mobility Assist Device Used No (0 pt) Altered Elimination No (0 pt) Score/Fall Risk Level 0 - 2 = Low Risk Maintained a safe environment, Provided non-skid footwear, Hourly rounding (assess needs \T\ fall precautionary measures) done. Abuse screen: Denies threats or abuse. Nutritional screening: No deficits noted. Tuberculosis screening: No symptoms or risk factors identified. Assessment: 15:54 General: Appears comfortable, obese, well groomed, well developed, Behavior is calm, me1 cooperative, appropriate for age, Reports was at the IV infusion center and they told him his BP was high like 208/110, takes losartan 100 mg , did not have it this morning. Pain: Denies pain. Neuro: Level of Consciousness is awake, alert, obeys commands, Oriented to person, place, time, situation, Appropriate for age. Cardiovascular: Patient's skin is warm and dry. Respiratory: Airway is patent Respiratory effort is even, unlabored, Respiratory pattern is regular, symmetrical. GI: No signs and/or symptoms were reported involving the gastrointestinal system. : No signs and/or symptoms were reported regarding the genitourinary system. EENT: No signs and/or symptoms were reported regarding the EENT system. Derm: Skin is intact, is healthy with good turgor, Skin is pink, warm \T\ dry. Musculoskeletal: No signs and/or symptoms reported regarding the musculoskeletal system. Vital Signs: 15:05 BP 168 / 106; Pulse 87; Resp 16; Temp 97.4; Pulse Ox 98% on R/A; Weight 199.58 kg; iw Height 6 ft. 3 in. ; 15:53 BP 158 / 91; Pulse 65; Resp 18; Pulse Ox 98% on R/A; me1 16:55 BP 157 / 86; Pulse 75; Resp 16; Temp 98.1; Pulse Ox 100% ; me1 15:05 Body Mass Index 55.00 (199.58 kg, 190.5 cm) iw ED Course: 15:03 Patient arrived in ED. im 15:04 Triage completed. iw 15:06 Arm band placed on. iw 15:10 Reuben Rios MD is Attending Physician. [facility] 15:45 Kate Walter, HERLINDA is Primary Nurse. me1 15:53 Comprehensive Metabolic Panel Sent. me1 15:53 CBC with Diff Sent. me1 15:53 Inserted saline lock: 20 gauge in right antecubital area, using aseptic technique. me1 Blood collected. Flushed with 10 mL NS. 15:54 Patient has correct armband on for positive identification. Bed in low position. Call me1 light in reach. Side rails up X 1. Provided Education on: POC. Verbalized understanding. . Client placed on continuous cardiac and pulse oximetry monitoring. NIBP monitoring applied. Pulse ox on. NIBP on. 15:54 No provider procedures requiring assistance completed. me1 15:56 Troponin High Sensitivity Sent. me1 16:07 Urinalysis w/ reflexes Sent. me1 16:07 Urine collected: clean catch specimen, cloudy. me1 16:40 Chest Single View XRAY In Process Unspecified. EDAZ 16:44 Pascual Zapata DO is Referral Physician. [facility] 16:44 Haseeb Ozuna MD is Referral Physician. [facility] 16:56 IV discontinued, intact, bleeding controlled, No redness/swelling at site. Pressure me1 dressing applied. Administered Medications: 16:07 Drug: Norvasc PO 5 mg PO once Route: PO; me1 16:47 Follow up: Response: No adverse reaction; Blood pressure is lowered me1 16:07 Drug: Hydrochlorothiazide PO 12.5 mg PO once Route: PO; me1 16:46 Follow up: Response: No adverse reaction; Blood pressure is lowered me1 Medication: 15:54 VIS not applicable for this client. me1 Outcome: 16:44 Discharge ordered by . [facility] 16:56 Discharged to home ambulatory, me1 16:56 Condition: stable 16:56 Discharge instructions given to patient, Instructed on discharge instructions, follow up and referral plans. medication usage, Demonstrated understanding of instructions, follow-up care, medications, Prescriptions given X 3, 16:57 Patient left the ED. me1 Signatures: Dispatcher [employer] [facility] Reuben Rios MD MD cha Williams, Irene, RN RN Vicky Garcia Michelle, RN RN me1 Corrections: (The following items were deleted from the chart) 15:05 15:05 BP 168 / 106; Pulse 87bpm; Resp 16bpm; Pulse Ox 98% RA; Temp 97.4F; iw iw 15:54 15:03 Chief complaint: Patient states: was at the IV infusion center and they told him me1 his BP was high like 208/110, takes losartan 100 mg , did not have it this morning iw
--- NOTE | 2024-07-04 16:44 | EDPHYS ---
Physician Documentation [facility] Name: Ren Polo Age: 34 yrs Sex: Male : 1990 Arrival Date: 07/04/2024 Time: 14:55 Bed 11 Private MD: ED Physician Reuben Rios HPI: 07/04 16:13 This 34 yrs old Black Male presents to ER via Ambulatory with complaints of High Blood yolette Pressure. 16:13 The patient has elevated blood pressure and discovered this at home. Onset: The yolette symptoms/episode began/occurred 2 day(s) ago. Modifying factors: The symptoms are aggravated by activity, The symptoms are alleviated by remaining still. Associated signs and symptoms: The patient has no apparent associated signs or symptoms. The patient has not experienced similar symptoms in the past. Historical: - Allergies: 15:05 No Known Allergies; iw - Home Meds: 15:05 losartan 100 mg Oral tablet [Active]; amlodipine 5 mg tablet [Active]; iw - PMHx: 15:05 Hypertensive disorder; iw - Immunization history:: Adult Immunizations up to date. - Infectious Disease History:: Denies. - Social history:: Smoking status: Patient denies any tobacco usage or history of. ROS: 16:13 Constitutional: Negative for fever, chills, and weight loss, Eyes: Negative for injury, yolette pain, redness, and discharge, ENT: Negative for injury, pain, and discharge, Neck: Negative for injury, pain, and swelling, Cardiovascular: Negative for chest pain, palpitations, and edema, Respiratory: Negative for shortness of breath, cough, wheezing, and pleuritic chest pain, Abdomen/GI: Negative for abdominal pain, nausea, vomiting, diarrhea, and constipation, Back: Negative for injury and pain, : Negative for injury, bleeding, discharge, and swelling, MS/Extremity: Negative for injury and deformity, Skin: Negative for injury, rash, and discoloration, Neuro: Negative for headache, weakness, numbness, tingling, and seizure, Psych: Negative for depression, anxiety, suicide ideation, homicidal ideation, and hallucinations, Allergy/Immunology: Negative for hives, rash, and allergies, Endocrine: Negative for neck swelling, polydipsia, polyuria, polyphagia, and marked weight changes, Hematologic/Lymphatic: Negative for swollen nodes, abnormal bleeding, and unusual bruising, Exam: 16:13 Constitutional: This is a well developed, well nourished patient who is awake, alert, yolette and in no acute distress. Head/Face: Normocephalic, atraumatic. Eyes: Pupils equal round and reactive to light, extra-ocular motions intact. Lids and lashes normal. Conjunctiva and sclera are non-icteric and not injected. Cornea within normal limits. Periorbital areas with no swelling, redness, or edema. ENT: Nares patent. No nasal discharge, no septal abnormalities noted. Tympanic membranes are normal and external auditory canals are clear. Oropharynx with no redness, swelling, or masses, exudates, or evidence of obstruction, uvula midline. Mucous membranes moist. Neck: Trachea midline, no thyromegaly or masses palpated, and no cervical lymphadenopathy. Supple, full range of motion without nuchal rigidity, or vertebral point tenderness. No Meningismus. Chest/axilla: Normal chest wall appearance and motion. Nontender with no deformity. No lesions are appreciated. Cardiovascular: Regular rate and rhythm with a normal S1 and S2. No gallops, murmurs, or rubs. Normal PMI, no JVD. No pulse deficits. Respiratory: Lungs have equal breath sounds bilaterally, clear to auscultation and percussion. No rales, rhonchi or wheezes noted. No increased work of breathing, no retractions or nasal flaring. Abdomen/GI: Soft, non-tender, with normal bowel sounds. No distension or tympany. No guarding or rebound. No evidence of tenderness throughout. Back: No spinal tenderness. No costovertebral tenderness. Full range of motion. Male : Normal genitalia with no discharge or lesions. Skin: Warm, dry with normal turgor. Normal color with no rashes, no lesions, and no evidence of cellulitis. MS/ Extremity: Pulses equal, no cyanosis. Neurovascular intact. Full, normal range of motion. Neuro: Awake and alert, GCS 15, oriented to person, place, time, and situation. Cranial nerves II-XII grossly intact. Motor strength 5/5 in all extremities. Sensory grossly intact. Cerebellar exam normal. Normal gait. Psych: Awake, alert, with orientation to person, place and time. Behavior, mood, and affect are within normal limits. 16:13 ECG was reviewed by the Attending Physician. Vital Signs: 15:05 BP 168 / 106; Pulse 87; Resp 16; Temp 97.4; Pulse Ox 98% on R/A; Weight 199.58 kg; iw Height 6 ft. 3 in. ; 15:53 BP 158 / 91; Pulse 65; Resp 18; Pulse Ox 98% on R/A; me1 16:55 BP 157 / 86; Pulse 75; Resp 16; Temp 98.1; Pulse Ox 100% ; me1 15:05 Body Mass Index 55.00 (199.58 kg, 190.5 cm) iw MDM: 15:10 Patient medically screened. yolette 16:15 Differential diagnosis: hypertensive crisis, Malignant HTN. Differential Diagnosis yolette altered mental status, sepsis, flu. Data reviewed: vital signs, nurses notes, lab test result(s), EKG, radiologic studies, plain films. Consideration of Admission/Observation Escalation of care including admission/observation considered. I considered the following discharge prescriptions or medication management in the emergency department Medications were administered in the Emergency Department. See MAR. Independent interpretation of the following test(s) in the Emergency Department EKG: See my EKG interpretation above. Test considered but Not performed: Ultrasound no 2 d echo. 07/04 15:12 Order name: CBC with Diff; Complete Time: 16:19 [facility] 07/04 15:12 Order name: Comprehensive Metabolic Panel; Complete Time: 16:43 [facility] 07/04 15:12 Order name: Urinalysis w/ reflexes; Complete Time: 16:43 [facility] 07/04 15:12 Order name: Troponin High Sensitivity; Complete Time: 16:43 [facility] 07/04 15:12 Order name: Chest Single View XRAY [facility] 07/04 15:12 Order name: EKG - Nurse/Tech; Complete Time: 15:36 [facility] 07/04 15:12 Order name: IV Saline Lock - Large Bore; Complete Time: 15:53 [facility] EC:13 Rate is 66 beats/min. QRS [place] is Normal. NH interval is normal. QRS interval is [facility] normal. QT interval is normal. No Q waves. T waves are Normal. Clinical impression: Normal ECG and No evidence of ischemia. Interpreted by me. Reviewed by me. Administered Medications: 16:07 Drug: Norvasc PO 5 mg PO once Route: PO; me1 16:47 Follow up: Response: No adverse reaction; Blood pressure is lowered me1 16:07 Drug: Hydrochlorothiazide PO 12.5 mg PO once Route: PO; me1 16:46 Follow up: Response: No adverse reaction; Blood pressure is lowered me1 Disposition Summary: 07/04/24 16:44 Discharge Ordered Notes: Location: Home yolette Problem: new yolette Symptoms: have improved yolette Condition: Stable yolette Diagnosis - Essential (primary) hypertension yolette - Obesity, unspecified yolette Followup: yolette - With: Private Physician - When: 2 - 3 days - Reason: Recheck today's complaints, Continuance of care, Re-evaluation by your physician Followup: yolette - With: Pascual Zapata DO - When: 2 - 3 days - Reason: Recheck today's complaints, Re-evaluation by your physician Followup: yolette - With: Haseeb Ozuna MD - When: 2 - 3 days - Reason: Recheck today's complaints, Re-evaluation by your physician Discharge Instructions: - Discharge Summary Sheet yolette - Hypertension, Adult yolette - Obesity, Adult yolette - Hypertension, Adult, [id number] yolette - How to Take Your Blood Pressure, [id number] yolette - Aspirin and Your Heart yolette - Managing Your Hypertension [facility] Forms: - Medication Reconciliation Form yolette - Antibiotic Education yolette - Prescription Opioid Use yolette - Patient Portal Instructions [facility] - Leadership Thank You Letter [facility] Prescriptions: - losartan 100 mg Oral tablet - take 1 tablet ORAL route daily; 30 tablet; Refills: 0, Product Selection yolette Permitted - Norvasc 5 mg Oral Tablet - take 1 tablet ORAL route once daily; 20 tablet; Refills: 0, Product Selection yolette Permitted - Hydrochlorothiazide 12.5 mg Oral Tablet - take 1 tablet ORAL route once daily; 30 tablet; Refills: 0, Product Selection yolette Permitted Signatures: Dispatcher [employer] Reuben Marquez MD MD cha Williams, Irene RN RN Kate Walter RN RN me1
--- NOTE | 2024-07-04 17:08 | RAD REPORT ---
EXAMINATION: ONE VIEW CHEST XR CLINICAL INDICATION: Male, 34 years old. [facility] MAIN CHEST PAIN Bed Name: [id number] TECHNIQUE: Frontal chest projection is submitted. Examination is limited by patient positioning and t echnique. COMPARISON: 08/20/2023 FINDINGS: The lungs are well inflated and clear. No pneumothorax or sizable effusion. The heart is normal in s ize. IMPRESSION: No acute intrathoracic abnormalities.
[2024-07-04 17:12] VITALS: BP 157/86; TEMP 98.1; O2SAT 100
--- NOTE | 2024-07-06 12:25 | EKG ---
Test Date: 2024-07-04 Test Time: 15:33:55 Neurology Tech: LML MEASUREMENT RESULTS: Intervals: Rate: 66 PA: 164 QRSD: 110 QT: 414 QTc: 434 Rossiter: P: 48 PA: 164 QRS: 60 T: -11 INTERPRETIVE STATEMENTS: Normal sinus rhythm with sinus arrhythmia Normal ECG Compared to ECG 08/20/2023 19:12:26 T-wave abnormality no longer present Electronically Signed On 07-06-24 12:18:40 CDT by Isacc Payan
== END 2024-07-04 16:57 | disposition home or self-care (01) ==
LOC: ER 14:55
DX: I10 Essential (primary) hypertension (principal); E66.9 Obesity, unspecified; Z68.43 Body mass index [BMI] 50.0-59.9, adult
CPT/HCPCS: 36415; 71045; 80053; 81001; 84484; 85025; 93005; 99284